=== PATIENT | female | born 1985 | race Caucasian/White ===

== ENCOUNTER 2024-08-01 07:06 | Emergency (ER) | payer MEDICAID, SELFPAY ==
[2024-08-01 07:06] VITALS: BMI 29.7
[2024-08-01 07:23] VITALS: BP 157/103; PULSE 106; RESP 20; TEMP 36.8; O2SAT 93
--- NOTE | 2024-08-01 07:27 | XR_ITS ---
Examination: AP chest single view Technique one AP portable upright chest single view Exam date and time: The 2024 0747 hours Comparison October 17, 2023 INDICATIONS: Shortness of breath today. FINDINGS: Normal heart size The lungs are clear. The osseous structures are demineralized IMPRESSION: No active disease
[2024-08-01 07:39] VITALS: BP 161/100; PULSE 98; RESP 14; TEMP 36.7; O2SAT 94
[2024-08-01 07:43] VITALS: PULSE 105
[2024-08-01] MEDS: ALBUTEROL RT 2.5 MG/0.5 ML NEBU 10 MG INH (07:43)
[2024-08-01] MEDS: IPRATROPIUM RT 0.5 MG/ 2.5 ML NEBU 1 MG INH (07:43)
[2024-08-01] MEDS: DEXAMETHASONE SOD PHOS INJ 10 MG/ML VIAL PO (07:44)
[2024-08-01 07:46] VITALS: PULSE 108; RESP 22; O2SAT 98
[2024-08-01 09:00] VITALS: BP 150/98; PULSE 105; RESP 17; TEMP 36.6; O2SAT 99
--- NOTE | 2024-08-01 11:43 | EDNOTE_ITS ---
ED Asthma RME/HPI General Chief Complaint: Asthma Stated Complaint: ASTHMA Time Seen by Provider: 08/01/24 07:15 Arrival date/time: 08/01/24 07:06 39-year-old female with history of asthma presents to the emergency department complaints of cough, congestion and wheezing patient reports symptoms ongoing x 1 day there are no other associated symptoms or aggravating factors no other modifying factors, patient denies taking medication before coming to ER today Limitations: no limitations Related Data Home Medications ?Medication ?Instructions ?Recorded ?Confirmed albuterol 90 mcg/actuation aerosol 90 mcg inhalation P RN PRN 09/27/20 11/10/20 inhaler Bronchospasm fluticasone propionate 220 2 puff inhalation BID 11/1011/10/20 mcg/actuation HFA aerosol inhaler (Flovent HFA) montelukast 10 mg tablet 10 mg PO QDAY 11/10/2011/10 Previous Rx's ?Medication ?Instructions ?Recorded prednisone 10 mg tablet 30 mg (3 x 10 mg) PO BID 3 d ays 08/01/24 #18 tabs Allergies Allergy/AdvReac Type Severity Reaction Status Date / Time No Known Allergies Allergy Verified 10/17/23 07:29 Review of Systems Review of Systems Systems Reviewed: All systems reviewed, normal except as documented Constitutional Constitutional: Reports system reviewed and no additional complaints, except as documented, Denies fever(s) and Denies headache(s) Eyes Eyes: Reports system reviewed and no additional complaints, except as documented and Denies blurry vision ENT Ears, Nose, Mouth, and Throat: Reports system reviewed and no additional complaints, except as documented, Denies headache(s), Denies nasal congestion and Denies nasal discharge Cardiovascular Cardiovascular: Reports system reviewed and no additional complaints, except as documented, Denies chest pain and Reports dyspnea Respiratory Respiratory: Reports system reviewed and no additional complaints, except as documented, Reports chest congestion, Reports cough, Reports dyspnea and Reports wheezing Gastrointestinal Gastrointestinal: Reports system reviewed and no additional complaints, except as documented and Denies abdominal pain Integumentary/Breasts Skin/Breast: Reports system reviewed and no additional complaints, except as documented and Denies rash Neurologic Neurologic: Reports system reviewed and no additional complaints, except as documented, Reports as per HPI and Denies headache(s) Allergic/Immunologic Allergic/Immunologic: Reports wheezing Past Medical History Past Medical History NEUROLOGIC: Negative Neurological Disorders CARDIAC: Positive Hypercholesterolemia and Hypertension; Negative Cardiac Disorders or Congestive Heart Failure RESPIRATORY: Positive Asthma; Negative Chronic Obstructive Pulmonary Disease (COPD) GENITOURINARY: Negative Renal Disease ENDOCRINE: Negative Diabetes Mellitus Type 1 or Diabetes Mellitus Type 2 Family History FAMILY HISTORY: Positive Family Cancer (pt's dad colon cancer) Social History SMOKING STATUS: Never smoker ED Exam General Limitations: Present no limitations General appearance: Present alert and in no apparent distress Head Head exam: Present atraumatic, normocephalic and normal inspection Eye Eye exam: Present normal appearance, PERRL and EOMI ENT ENT exam: Present normal exam, normal oropharynx and mucous membranes moist Neck Neck exam: Present normal inspection, full ROM and trachea midline Chest Chest inspection: Present normal inspection and symmetric chest wall rise Respiratory Respiratory exam: Present wheezes; Absent respiratory distress, accessory muscle use or prolonged expiratory phase Cardiovascular Cardiovascular exam: Present regular rate, normal rhythm and normal heart sounds Abdominal Exam Abdominal exam: Present soft and normal bowel sounds Extremities Exam Extremities exam: Present normal inspection and full ROM Back Exam Back exam: Present normal inspection and full ROM Neurological Exam Neurological exam: Present alert, oriented X3, CN II-XII intact, normal gait and reflexes normal; Absent motor sensory deficit Psychiatric Psychiatric exam: Present normal affect and normal mood Skin Skin exam: Present warm, dry, intact and normal color; Absent rash Course Quality Measures none Orders Category Date Time Status Continuous Pulse Oximetry NOW Care 08/01/24 07:27 Completed XR chest 1V portable Stat Exams 08/01/24 07:27 Taken ALBUTEROL RT 0.5ml [Proventil Rt 0.5ml] Med 08/01/24 07:26 Discontinued 10 mg INH X1 ONE Dexamethasone Inj [Decadron Inj] Med 08/01/24 07:26 Discontinued 10 mg PO X1 ONE Ipratropium [place] Rt Gregoria [Atrovent Rt Gregoria] Med 08/01/24 07:26 Discontinued 1 mg INH X1 ONE Sodium Chloride Rt Gregoria 0.9% [NS Rt Gregoria 0.9%] Med 08/01/24 07:26 Active 3 ml INH PRN PRN Vital Signs Vital signs: Vital Signs Temperature 98.3 F 08/01/24 07:23 Pulse Rate 106 H 08/01/24 07:23 Respiratory Rate 20 08/01/24 07:23 Blood Pressure 157/103 H 08/01/24 07:23 Pulse Oximetry (%) 93 L 08/01/24 07:23 Oxygen Delivery Method Room Air 08/01/24 07:23 O2 saturation 93% room air Asthma MDM Narrative MDM Narrative:: 39-year-old female with history of asthma presents to the emergency department complaints of cough, congestion and wheezing patient reports symptoms ongoing x 1 day there are no other associated symptoms or aggravating factors no other modifying factors, patient denies taking medication before coming to ER today On exam patient does not appear ill or toxic patient has diffuse wheezing bilaterally patient is in no distress Patient given continuous breathing treatment as well as steroids Chest x-ray obtained chest x-ray no acute pneumonic infiltrates noted no pneumothorax or hemothorax At time reevaluation after breathing treatments completed and steroids were given and x-ray was reviewed patient reports her symptoms have significantly improved On exam patient no longer has any wheezing and reports she would like to go home Patient discharged home in no distress to follow-up with primary care doctor in the next 24 to 48 hours and for any worsening symptoms to return to the ER immediately Patient data External records reviewed:: [facility] previous records Clinical information provided by:: patient Social determinants that could affect healthcare access:: none Patient has the following chronic illnesses:: None How is presenting disease/condition affected by chronic disease/condition?: no chronic disease Evaluation data The following diagnostics were reviewed and interpreted by me:: lab results and radiology exam(s) Lab and/or radiology exams considered but not ordered:: Labs radiology obtain Interpretation Summary: Reviewed by me Medications / Prescriptions Medications or Prescriptions considered but not ordered:: Given Medication administrations:: Medication Administration History Sodium Chloride (Sodium Chloride Rt Gregoria 0.9% 3 Ml Nebu) 3 ml INH PRN PRN PRN Reason: SOLN Stop: 08/31/24 07:25 Discontinued Medications Albuterol (Albuterol Rt 2.5 Mg/0.5 Ml Nebu) 10 mg INH X1 ONE Stop: 08/01/24 07:27 Last Admin: 08/01/24 07:43 Dose: 10 mg Documented By: BRITTANEY Dexamethasone Sodium Phosphate (Dexamethasone Sod Phos Inj 10 Mg/Ml Vial) 10 mg PO X1 ONE Stop: 08/01/24 07:27 Last Admin: 08/01/24 07:44 Dose: 10 mg Documented By: CHE Comments: PER PROVIDER, OK TO GIVE PO. Ipratropium [place] (Ipratropium Rt 0.5 Mg/ 2.5 Ml Nebu) 1 mg INH X1 ONE Stop: 08/01/24 07:27 Last Admin: 08/01/24 07:43 Dose: 1 mg Documented By: MW Consultations Consultation(s) initiated? (list below): No Diagnosis Differential diagnosis asthma: Acute exacerbation and Status asthmaticus Most likely diagnosis given after review of the tests above:: Asthma Admission Indicated Admission indicated?: not indicated Admission Request Was there a request for admission?: No Disposition Plan Disposition Plan: Discharge Discharge Attestation Discharge Attestation: The patient and all family members were given an opportunity to ask questions and understood the discharge instructions. Discharge instructions specifically effects, indications for sooner follow up or return to the emergency department, and the expected course of current diagnosis. Patient condition: Stable Discharge Plan Plan Patient Disposition: HOME (Self Care) Disposition Comment: Stable Prescriptions/Referrals Prescriptions/Med Rec: New prednisone 10 mg tablet 30 mg PO BID 3 Days Qty: 18 0RF No Action albuterol 90 mcg/actuation Aerosol 90 mcg INHALATION PRN PRN (Reason: Bronchospasm) montelukast 10 mg tablet 10 mg PO QDAY Patient Comments: TAKE 1 TABLET BY MOUTH EVERY DAY Flovent HFA 220 mcg/actuation HFA aerosol inhaler 2 puff INHALATION BID Patient Comments: TAKE 1 PUFF BY MOUTH TWICE A DAY Referrals: Ashley Henry MD [Primary Care Provider] - In 1 week Problem List Clinical Impression: Asthma with acute exacerbation Patient/Caregiver Discharge Instructions Education Materials: Asthma Action Plan Additional Instructions: Please follow up with your primary care doctor in the next 24-48hrs for any worsening symptoms return here immediately Print Language: Maori Stand Alone Forms: Rosemarie Award Info., Patient Portal Info Letter PA/MELISSA Supervising Physician PA/MELISSA Supervising Physician: Dr Carmichael
== END 2024-08-01 11:45 | disposition home or self-care (01) ==
PROVIDERS: Emergency Provider Emergency Medicine; PCP Family Medicine
DX: J45.901 Unspecified asthma with (acute) exacerbation (principal)
CPT/HCPCS: 71045; 94640; 94644; 99283; J1100

== ENCOUNTER 2024-12-17 07:19 | Emergency (ER) | payer MEDICAID, SELFPAY ==
[2024-12-17 07:20] VITALS: BMI 29.0
[2024-12-17 07:55] VITALS: BP 148/100; BP 151/100; PULSE 110; RESP 20; TEMP 36.8; O2SAT 94
--- NOTE | 2024-12-17 08:09 | EDNOTE_ITS ---
ED SOB =RME/HPI General Chief Complaint: Shortness of Breath/Dyspnea Stated Complaint: ASTHMA Time Seen by Provider: 12/17/24 07:20 Arrival date/time: 12/17/24 07:19 This is a 39-year-old female that comes in with complaints of shortness of breath. Patient states symptoms have been going on for the last week. Patient has been seen in the emergency room several times for the same reason. Patient has a history of asthma patient is a smoker. Patient was not diagnosed with COPD but states that she takes medications for COPD. Related Data Home Medications ?Medication ?Instructions ?Recorded ?Confirmed albuterol 90 mcg/actuation aerosol 90 mcg inhalation P RN PRN 09/27/20 11/10/20 inhaler Bronchospasm fluticasone propionate 220 2 puff inhalation BID 11/1011/10/20 mcg/actuation HFA aerosol inhaler (Flovent HFA) montelukast 10 mg tablet 10 mg PO QDAY 11/10/2011/10 Previous Rx's ?Medication ?Instructions ?Recorded azithromycin 250 mg tablet See Rx Instructions PO .COM PLEX #6 12/17/24 tabs promethazine-DM 6.25 mg-15 mg/5 mL 5 ml PO Q6H PRN cou gh #240 mL 12/17/24 oral syrup Allergies Allergy/AdvReac Type Severity Reaction Status Date / Time No Known Allergies Allergy Verified 12/17/24 07:22 Review of Systems Review of Systems Systems Reviewed: All systems reviewed, normal except as documented Past Medical History Past Medical History NEUROLOGIC: Negative Neurological Disorders CARDIAC: Positive Hypercholesterolemia and Hypertension; Negative Cardiac Disorders or Congestive Heart Failure RESPIRATORY: Positive Asthma; Negative Chronic Obstructive Pulmonary Disease (COPD) GENITOURINARY: Negative Renal Disease ENDOCRINE: Negative Diabetes Mellitus Type 1 or Diabetes Mellitus Type 2 Family History FAMILY HISTORY: Positive Family Cancer (pt's dad colon cancer) Social History SMOKING STATUS: Never smoker ED Exam Narrative Physical exam: VITAL SIGNS: Reviewed. GENERAL APPEARANCE: Alert and interactive, follows commands, no acute distress, HEAD AND FACE: Non-traumatic. ENT: PERRL, conjuctiva pink and clear, eyelid no trauma, Mucous membrane moist. NECK: Supple, nontender, no nuchal rigidity. CHEST: No tenderness, no crepitus, no paradoxical movement, no retractions. LUNGS: diminished with wheezing throughout HEART: Regular rate, regular rhythm, no murmur, no gallops. ABDOMEN: Soft, nondistended, no guarding, nontender, no rebound, no masses, NEUROLOGICAL: Gross motor function intact sensory function intact, Appropriate for age. MUSCULOSKELETAL: low back nontender, full range of motion. EXTREMITIES: No redness no swelling no skin breakdown on bilateral foot and leg. Distal neurovascular status intact bilateral foot SKIN: Color pink, dry, no rash, no lacerations, no abrasions, no contusions. Course Quality Measures none Orders Category Date Time Status XR chest 2V Stat Exams 12/17/24 08:10 Completed Albuterol/Ipratr Rt Gregoria [Duoneb Rt Gregoria] Med 12/17/24 08:10 Discontinued 3 ml INH X1 ONE Albuterol/Ipratr Rt Gregoria [Duoneb Rt Gregoria] Med 12/17/24 08:55 Discontinued 3 ml INH X1 ONE MethylPREDNISolone.* [SoluMEDROL Inj] Med 12/17/24 08:10 Discontinued 125 mg IM X1 ONE Vital Signs Vital signs: Vital Signs Temperature 98.3 F 12/17/24 07:55 Pulse Rate 110 H 12/17/24 07:55 Respiratory Rate 20 12/17/24 07:55 Blood Pressure 151/100 H 12/17/24 07:55 Pulse Oximetry (%) 94 L 12/17/24 07:55 Oxygen Delivery Method Room Air 12/17/24 07:55 Shortness of Breath / Dyspnea MDM Narrative MDM Narrative:: Patient given 2 breathing treatments albuterol and Atrovent. Patient also given a dose of Solu-Medrol. Patient does feel better. I spoke to patient at length about her current medications. Patient's current medications are being prescribed by a licensed esthetician. Patient told that she may benefit from being seen by a junior brand manager. Patient has never had any pulmonary function test. She was a smoker so she can have COPD. I will send patient home with steroids I will also send home with antibiotics and cough medicine. I told patient she needs to follow-up with her primary provider in 1 to 2 days. Come back to the emergency room symptoms change or worsen. Patient feels comfortable plan of care. chest x ray: Findings: Normal heart size. Lungs are clear. Osseous structures are intact. Impression: No active disease. Patient data External records reviewed:: [facility] previous records Clinical information provided by:: patient Social determinants that could affect healthcare access:: none Patient has the following chronic illnesses:: see note How is presenting disease/condition affected by chronic disease/condition?: exacerbated by Evaluation data The following diagnostics were reviewed and interpreted by me:: radiology exam(s) Lab and/or radiology exams considered but not ordered:: none Interpretation Summary: see note Medications / Prescriptions Medications or Prescriptions considered but not ordered:: none Medication administrations:: Medication Administration History Discontinued Medications Albuterol/Ipratropium (Albuterol/Ipratropium (Duoneb) Rt Gregoria 3 Ml Nebu) 3 ml INH X1 ONE Stop: 12/17/24 08:11 Last Admin: 12/17/24 08:26 Dose: 3 ml Documented By: BRITTANEY Albuterol/Ipratropium (Albuterol/Ipratropium (Duoneb) Rt Gregoria 3 Ml Nebu) 3 ml INH X1 ONE Stop: 12/17/24 08:56 Last Admin: 12/17/24 09:25 Dose: 3 ml Documented By: BRITTANEY Methylprednisolone Sodium Succinate (Methylprednisolone Sod Succ 62.5 Mg/Ml 2ml Vial) 125 mg IM X1 ONE Stop: 12/17/24 08:11 Last Admin: 12/17/24 08:29 Dose: 125 mg Documented By: DO see mar Consultations Consultation(s) initiated? (list below): No Diagnosis Shortness of Breath Differential Diagnosis: acute exacerbation of chronic obstructive airways disease, congestive heart failure, community acquired pneumonia and asthma with exacerbation Most likely diagnosis given after review of the tests above:: rad Admission Indicated Admission indicated?: not indicated Admission Request Was there a request for admission?: No Disposition Plan Disposition Plan: Discharge Discharge Attestation Discharge Attestation: The patient and all family members were given an opportunity to ask questions and understood the discharge instructions. Discharge instructions specifically effects, indications for sooner follow up or return to the emergency department, and the expected course of current diagnosis. Patient condition: Stable Discharge Plan Plan Patient Disposition: HOME (Self Care) Patient condition on transfer: Stable Prescriptions/Referrals Prescriptions/Med Rec: New promethazine-DM 6.25-15 mg/5 mL syrup 5 ml PO Q6H PRN (Reason: cough) Qty: 240 0RF azithromycin 250 mg tablet See Rx Instructions .ROUTE .COMPLEX Qty: 6 0RF Rx Instructions: For 250 mg dose pack: take 500 mg today (day 1), then 250 mg for 4 days (days 2-5) No Action albuterol 90 mcg/actuation Aerosol 90 mcg INHALATION PRN PRN (Reason: Bronchospasm) montelukast 10 mg tablet 10 mg PO QDAY Patient Comments: TAKE 1 TABLET BY MOUTH EVERY DAY Flovent HFA 220 mcg/actuation HFA aerosol inhaler 2 puff INHALATION BID Patient Comments: TAKE 1 PUFF BY MOUTH TWICE A DAY Referrals: Ashley Henry MD [Primary Care Provider] - In 1 week Problem List Clinical Impression: Exacerbation of RAD (reactive airway disease), Cough Patient/Caregiver Discharge Instructions Discharge Activity: activity as tolerated Education Materials: ED Asthma, Acute (Adult) Additional Instructions: Follow up with primary provider in 1-2 days. Come back to ED if symptoms change or worsen Print Language: Georgian Stand Alone Forms: Rosemarie Award Info., Patient Portal Info Letter PA/BURRER MACHINE Supervising Physician PA/BURRER MACHINE Supervising Physician: nya
--- NOTE | 2024-12-17 08:10 | XR_ITS ---
Examination: PA lateral chest 2 views Technique: Upright PA lateral chest 2 views Date and time: December 17, 2024, 0949 hrs. Indications: Shortness of breath today Findings: Normal heart size. Lungs are clear. Osseous structures are intact. Impression: No active disease.
[2024-12-17] MEDS: ALBUTEROL/IPRATROPIUM (Duoneb) RT SOL 3 ML NEBU INH ×2 (08:26→09:25)
[2024-12-17 08:29] VITALS: PULSE 110; RESP 18; O2SAT 98
[2024-12-17] MEDS: MethylPREDNISolone SOD SUCC 62.5 MG/ML 2ML VIAL 125 MG IM (08:29)
[2024-12-17 09:28] VITALS: PULSE 111; RESP 19; O2SAT 99
[2024-12-17 10:44] VITALS: BP 150/110; PULSE 93; RESP 18; TEMP 36.8; O2SAT 98
== END 2024-12-17 10:48 | disposition home or self-care (01) ==
PROVIDERS: Emergency Provider Family Medicine; PCP Family Medicine
DX: J44.89 Other specified chronic obstructive pulmonary disease (principal); J45.901 Unspecified asthma with (acute) exacerbation
CPT/HCPCS: 71046; 94640; 96372; 99283; A9270; J2919